=== PATIENT | female | born 1955 | race Caucasian/White ===

== ENCOUNTER 2021-11-11 06:05 | Observation (INO) ==
[~2021-11-11 06:05] MED LIST: Buffered Lidocaine 1% SYRIN 1 ml INTRADERM ONE; Lactated Ringers 1000 ml BAG 1,000 ML IV SCH
[2021-11-11] MEDS ORDERED: ceFAZolin 2 GM in NS PREMIX 2 GM/100 ML BAG IVPB ONE (06:30)
[2021-11-11] MEDS ORDERED: Vancomycin 1,000 MG VIAL ONE (06:58)
[2021-11-11 07:04] LABS: Activated Partial Thrombo Time 28.7 seconds (26.0-38.0); INR 1.05 (0.89-1.11)
[2021-11-11] MEDS ORDERED: Propofol 10 MG/ML 20 ML BTL ONE ×2 (07:15→09:13)
[2021-11-11] MEDS ORDERED: Midazolam 2 mg/2 ml VIAL 1 mg/ml 2 ml VIAL (2 mg) ONE (07:15)
[2021-11-11] MEDS ORDERED: Lidocaine 2% PF 5 ML VIAL ONE (07:15)
[2021-11-11] MEDS ORDERED: fentaNYL 100 mcg/2 ml 50 MCG/ML VIAL ONE ×2 (07:15→07:45)
[2021-11-11] MEDS ORDERED: Dexamethasone IV 4 MG/ML VIAL 1 ml VIAL ONE ×2 (07:24→08:13)
[2021-11-11] MEDS ORDERED: ROPIVACAINE 5 MG/ML 30 ML BTL (0.5%) ONE (07:24)
[2021-11-11] MEDS ORDERED: Metoclopramide 5 MG/ML VIAL (10 mg) IV PRN (08:10)
[2021-11-11] MEDS ORDERED: Ondansetron 4 mg VIAL 2 MG/ML 2 ml VIAL IV PRN ×2 (08:10→11:07)
[2021-11-11] MEDS ORDERED: fentaNYL 100 mcg/2 ml 50 MCG/ML VIAL IV PRN (08:10)
[2021-11-11] MEDS ORDERED: Naloxone 0.4 mg VIAL 0.4 mg/ml 1 ml VIAL IV PRN (08:10)
[2021-11-11] MEDS ORDERED: Phenylephrine 40 mcg/mL 10mL (400mcg) SYRINGE ONE (08:14)
[2021-11-11] MEDS ORDERED: Ondansetron 4 mg VIAL 2 MG/ML 2 ml VIAL ONE (08:16)
[2021-11-11] MEDS ORDERED: Ondansetron ODT 4 mg TAB 4 MG TAB PO PRN (11:07)
[2021-11-11] MEDS ORDERED: Morphine 2 MG/ML SYRINGE IV PRN (11:07)
[2021-11-11] MEDS ORDERED: Lactulose 30 ml UDC PO PRN (11:07)
[2021-11-11] MEDS ORDERED: Magnesium Hydroxide LIQ 30 ML UDC PO PRN (11:07)
[2021-11-11] MEDS ORDERED: Lactated Ringers 1000 ml BAG 1,000 ML IV SCH (12:00)
[2021-11-11 15:42] LABS: ABS Monocytes 0.6 10^3/ul (0-0.8); ABS Neutrophils 15.5 10^3/ul (1.5-7.7); Hematocrit 35 % (35-47); Hemoglobin 11.5 g/dL (12.0-16.0); Mean Corpuscular HGB Conc 33 g/dL (31-36); Mean Corpuscular Hemoglobin 31 pg (27-31); Mean Corpuscular Volume 95 fL (80-97); Platelet Count 329 10^3/uL (150-450); Red Blood Count 3.67 10^6 /uL (3.70-4.87); Red Cell Distribution Width 13 % (10-15); White Blood Count 17.2 10^3/uL (3.5-10.8)
[2021-11-11 15:51] LABS: Activated Partial Thrombo Time 26.4 seconds (26.0-38.0); INR 1.1 (0.89-1.11)
[2021-11-11 16:17] LABS: Albumin 3.5 g/dL (3.2-5.2); Albumin/Globulin Ratio 1.8 (1-3); Calcium 8.6 mg/dL (8.6-10.3); Potassium 4.1 mmol/L (3.5-5.0); Total Bilirubin 0.4 mg/dL (0.2-1.0); Total Protein 5.5 g/dL (6.4-8.9); eGFR CKD-EPI 60.7 (>60)
[2021-11-11] MEDS ORDERED: Lactated Ringers 500 ml BAG 500 ML IV ONE (16:18)
[2021-11-11] MEDS ORDERED: Lactated Ringers 1000 ml BAG 500 ML IV ONE ×3 (16:30→19:04)
[2021-11-11] MEDS: ceFAZolin 1 GM ADVAN 1 GM in NS 0.9% 50 ML 50 ML IVPB SCH (16:43)
[2021-11-11 17:33] LABS: Urine Appearance Clear; Urine Bilirubin Negative (Negative); Urine Blood Negative (Negative); Urine Color Yellow; Urine Glucose Negative (Negative); Urine Ketones Negative (Negative); Urine Protein Negative (Negative); Urine Urobilinogen 0.2 (Negative) (Negative)
[2021-11-11 17:34] LABS: Urine Nitrite Negative (Negative)
[2021-11-11] MEDS: Lactated Ringers 1000 ml BAG 1,000 ML IV SCH ×2 (18:22→20:54)
[2021-11-11] MEDS: Magnesium Hydroxide LIQ 30 ML UDC PO SCH (21:07)
[2021-11-12] MEDS: ceFAZolin 1 GM ADVAN 1 GM in NS 0.9% 50 ML 50 ML IVPB SCH ×2 (01:09→09:28)
[2021-11-12 05:30] LABS: Hematocrit 28 % (35-47); Hemoglobin 9.1 g/dL (12.0-16.0); Mean Platelet Volume 7.2 fL (7.4-10.4); Platelet Count 257 10^3/uL (150-450)
[2021-11-12 05:54] LABS: Calcium 8.4 mg/dL (8.6-10.3); Potassium 4.4 mmol/L (3.5-5.0); eGFR CKD-EPI 71.5 (>60)
[2021-11-12 08:14] LABS: ABS Lymphocytes 0.7 10^3/ul (1.0-4.8); ABS Neutrophils 5.9 10^3/ul (1.5-7.7); Eosinophil % 0.3 %; Lymphocyte % 9.7 %; Mean Corpuscular HGB Conc 34 g/dL (31-36); Mean Corpuscular Hemoglobin 32 pg (27-31); Mean Corpuscular Volume 96 fL (80-97); Red Blood Count 2.85 10^6 /uL (3.70-4.87); Red Cell Distribution Width 12 % (10-15); White Blood Count 7.7 10^3/uL (3.5-10.8)
[2021-11-12] MEDS: Vitamin THERAPEUTIC TAB PO SCH (09:25)
[2021-11-12] MEDS: ANASTROZOLE 1 MG PO SCH (09:27)
[2021-11-12] MEDS: Magnesium Hydroxide LIQ 30 ML UDC PO SCH (09:27)
[2021-11-12] MEDS: Cholecalciferol (VIT D3) 1,000 unit TAB PO SCH (09:33)
[2021-11-12] MEDS: Lactated Ringers 1000 ml BAG 1,000 ML IV SCH (20:35)
[2021-11-13] MEDS: Lactated Ringers 1000 ml BAG 1,000 ML IV SCH ×2 (05:17→18:32)
[2021-11-13 05:50] LABS: Hematocrit 21 % (35-47); Hemoglobin 7.2 g/dL (12.0-16.0); Mean Platelet Volume 7.1 fL (7.4-10.4); Platelet Count 207 10^3/uL (150-450)
[2021-11-13] MEDS ORDERED: Iodixanol (CONTRAST) 320 MG/ML 100 ML SDV IV ONE (09:29)
[2021-11-13] MEDS: Vitamin THERAPEUTIC TAB PO SCH (10:05)
[2021-11-13] MEDS: ANASTROZOLE 1 MG PO SCH (10:05)
[2021-11-13] MEDS: Cholecalciferol (VIT D3) 1,000 unit TAB PO SCH (10:05)
[2021-11-13 18:34] LABS: Hematocrit 27 % (35-47)
[2021-11-14] MEDS: Lactated Ringers 1000 ml BAG 1,000 ML IV SCH (04:45)
[2021-11-14 06:11] LABS: Hematocrit 24 % (35-47); Hemoglobin 8.3 g/dL (12.0-16.0); Mean Platelet Volume 6.9 fL (7.4-10.4); Platelet Count 213 10^3/uL (150-450)
[2021-11-14 08:24] VITALS: BP 131/76
[2021-11-14] MEDS: ANASTROZOLE 1 MG PO SCH (08:27)
[2021-11-14] MEDS: Cholecalciferol (VIT D3) 1,000 unit TAB PO SCH (08:28)
[2021-11-14] MEDS: Vitamin THERAPEUTIC TAB PO SCH (08:28)
== END 2021-11-14 12:15 | disposition home or self-care (01) ==
LOC: OR 06:05 → SSU 06:05
PROVIDERS: ADMIT Orthopaedic Surgery; ATTEND Orthopaedic Surgery